=== PATIENT | female | born 1985 | race Caucasian/White ===

== ENCOUNTER 2018-03-15 14:10 | Inpatient (IN) | payer OTHER ==
[2018-03-15] MEDS: BETAMET ACET/BETAMET NA PH 30 MG/5 ML VIAL IM ONE ×2 (14:45)
[2018-03-15] MEDS ORDERED: BETAMET ACET/BETAMET NA PH 30 MG/5 ML VIAL ONE (14:46)
[2018-03-15] MEDS ORDERED: DEXTROSE 5%-LACTATED RINGERS 1,000 ML IV ONE ×2 (14:50→19:45)
[2018-03-15] MEDS: NIFEdipine 10 MG CAPSULE (FP) PO PRN ×3 (16:00→17:00)
[2018-03-15] MEDS ORDERED: NIFEdipine 10 MG CAPSULE (FP) ONE ×3 (16:03→17:02)
[2018-03-15] MEDS ORDERED: AMPICILLIN SODIUM 2 GM VIAL ONE (16:24)
[2018-03-15] MEDS ORDERED: AMPICILLIN - 2 GM in SODIUM CHLORIDE 100 ML IVPB ONE (16:30)
[2018-03-15 17:18] VITALS: BMI 26.9
[2018-03-15] MEDS: ACETAMINOPHEN 325 MG TABLET (FP) PO PRN (17:30)
[2018-03-15] MEDS ORDERED: ACETAMINOPHEN 325 MG TABLET (FP) ONE (17:32)
[2018-03-15] MEDS: AMPICILLIN - 1 GM in SODIUM CHLORIDE 100 ML IVPB SCH ×2 (18:17→21:30)
--- NOTE | 2018-03-15 18:48 | HP ---
Past Medical History - Primary Care Physician PCP:: Enzo Hilario - Admission Chief Complaint: 32yo P1 with at EGA 33w 4d admitted with labor. History of Present Illness: Pt with contractions since 03/11/2018. The pt was also being evaluated for elevated BP and possible preeclampsia, so she came to L&D with a 24hr urine collection in the morning. The pt was assessed for BP and possible labor and, since she was not having regular contractions, discharge to be seen in the office. The pt was seen in the office and she reported that her contractions were more frequent and painful. On her vaginal examination the cervix was noted to be 70% effaced but closed. The transvaginal US showed the cervical length 1.75cm. The pt was then referred back to L&D for evaluation of possible labor. On the L&D unit the pt was noted to have regular painful contractions and the decision was made to proceed with tocolysis. She was also given betamethasone 12 mg IM x 1, Ampicillin IV for GBS prophylaxis, and Nifedipine x 3 doses. Her contractions did not stop but improved. However, the pt developed a sudden onset midsternal chest pain. She denies SOB or dizziness. Her BP is stable within normal range and HR at 110 bpm. History Source: Patient, Medical Record Limitations to Obtaining History: No Limitations - Past Medical History Cardiovascular: Yes: Other (Mitral valve prolapse) Pulmonary: No: Asthma, Bronchitis, Cancer, COPD, O2 Dependent, Pneumonia, Previously Intubated, Pulmonary Embolus, Pulmonary Fibrosis, Sleep Apnea, Other Gastrointestinal: No: Ascites, Cancer, Constipation, Crohn's Disease, Diverticulitis, Diverticulosis, Esophageal Varices, Gastritis, GERD, GI Bleed, Hemorrhoids, Hiatal Hernia, Inflamatory Bowel Disease, Irritable Bowel Disease, Pancreatitis, Peptic Ulcer Disease, Ulcerative Colitis, Other Hepatobiliary: No: Cirrhosis, Cholelithiasis, Cholecystitis, Choledocholithiasis , Hepatitis A, Hepatitis B, Hepatitis C, Other Renal/: No: Renal Failure, Renal Inusuff, BPH, Cancer, Hematuria, Hemodialysis , Neurogenic Bladder, Renal Calculi, UTI, Other ...: 3 ...Para: 1 ( x 1, 6lb 2oz, severe preeclampsia) ...Term: 0 ...: 0 ...Spon : 0 ...Induced : 1 ...Multiple Gestation: 0 ...LMP: 07/27/17 ... Weeks Gestation by Dates: 32.5 ...EDC by Dates: 05/03/18 ...EDC by Sono: 04/29/18 Heme/Onc: No: Anemia, B12 Deficiency, Bleeding Disorder, Cancer, Current Chemotherapy, Current Radiation Therapy, Hemochromatosis, Hypercoaguable State, Myeloproliferative Synd, Sickle Cell Disease, Sickle Cell Trait, Thrombocytopenia, Other Infectious Disease: No: AIDS, C-Diff, Herpes Zoster, HIV, MRSA, STD's, Tuberculosis, VREF, Other Psych: No: Addictions, Anxiety, Bipolar, Depression, Panic, Psychosis, Schizophrenia, Other Musculoskeletal: No: Bursitis, Chronic low back pain, Hemiparesis, Hemiplegia, Osteoarthritis, Paraplegia, Other Rheumatology: No: Fibromyalgia, Gout, Lupus, Rheumatoid Arthritis, Sarcoidosis, Vasculitis, Other ENT: Yes: Other (right eye large-angle exotropia) Endocrine: No: Huntingdon's Disease, Justin's Disease, Diabetes Insipidus, Diabetes Mellitus, Hyperparathyroidism, Hyperthyroidism, Hypothyroidism, Osteopenia, SIADH, Other Dermatology: No: Basal Cell, Cellulitis, Eczema, Melanoma, Psoriasis, Squamous Cell, Other - Past Surgical History Hx Myomectomy: No Hx Transabdominal Cerclage: No Additional Surgical History: LEEP - Smoking History Smoking history: Never smoked Have you smoked in the past 12 months: No - Alcohol/Substance Use Hx Alcohol Use: No History of Substance Use: reports: None - Social History Usual Living Arrangement: Yes: With Spouse, With Child ADL: Independent History of Recent Travel: No Home Medications - Allergies Allergies/Adverse Reactions: Allergies Allergy/AdvReac Type Severity Reaction Status Date / Time avocado Allergy Severe Swelling Verified 03/15/18 17:18 chicken derived Allergy Severe Hives Verified 03/15/18 17:18 cat dander Allergy Intermediate Hives Verified 03/15/18 17:18 Nuts Allergy Intermediate Hives Uncoded 03/15/18 17:18 - Home Medications Home Medications: Ambulatory Orders Vit No.130/Iron/Folic [ Vitamins] 1 each PO DAILY 12/19/17 Family Disease History - Family Disease History Family Disease History: Heart Disease: Sister (Mitral valve prolapse), Other: Father (htn, high cholesterol) Review of Systems - Review of Systems Constitutional: reports: Other (contractions) Eyes: reports: No Symptoms HENT: reports: No Symptoms Neck: reports: No Symptoms Cardiovascular: reports: Chest Pain (see HPI) Respiratory: reports: No Symptoms Gastrointestinal: reports: No Symptoms Genitourinary: reports: No Symptoms Breasts: reports: No Symptoms Reported Musculoskeletal: reports: No Symptoms Integumentary: reports: No Symptoms Neurological: reports: No Symptoms Endocrine: reports: No Symptoms Hematology/Lymphatic: reports: No Symptoms Psychiatric: reports: No Symptoms Pain Intensity: 4 Physical Exam - Maternity Vital Signs: Vital Signs Temperature 98 F 03/15/18 16:15 Pulse Rate 113 H 03/15/18 17:25 Respiratory Rate 20 03/15/18 17:25 Blood Pressure 132/76 03/15/18 17:25 O2 Sat by Pulse Oximetry (%) Constitutional: Yes: Well Nourished Eyes: Yes: Other (right eye large-angle exotropia) HENT: Yes: Atraumatic, Normocephalic Neck: Yes: WNL, Supple, Trachea Midline Cardiovascular: Yes: WNL, Regular Rate and Rhythm, Tachycardia Lungs: Clear to auscultation, Normal air movement - Abdominal Exam/OB Fundal Height: 34 Number of Fetuses: Single Presentation: Vertex Contractions: Yes Regularity: Irregular Intensity: Mild/Mod Monitor Mode: External Heart Rate (range): 170 Heart Rate Location: Midline Category: II Accelerations: Non-Uniform Decelerations: None - Vaginal Exam/OB Vaginal Bleediing: No Speculum Exam: No Dilatation (cm): 0 Effacement (%): 70 Amniotic Membrane Status: Intact Presentation: Vertex/Position Station: -4 - Physical Exam Musculoskeletal: Yes: WNL Extremities: Yes: WNL Edema: No Integumentary: Yes: WNL Deep Tendon Reflex Grade: Normal +2 ...Motor Strength: WNL Psychiatric: Yes: WNL, Alert, Oriented Hemorrhage Risk Assessment - Risk Factors Medium Risk Factors: Yes: None High Risk Factors: Yes: None Risk Score: 1 Risk Level: Medium Risk Assessment/Plan 32yo P1 with at EGA 33w 4d admitted with labor. Pt was initially tocolysed with Nifedipine but developed acute episode of angina. The tocolysis was stopped. 1. Pt with stable and normal BP and saturating at 100% on RA. However, she was given O2 by mask when angina started. She had a normal HR but developed tachycardia when chest pain started. Pt's BP is remaining stable. The pt is tachycardic at 110-115 bpm. 2. Chest pain is improving. Pulse Ox at 100% 3. Fetus developed tachycardia to baseline 170 bpm. No decels, moderate variability, no accels. 4. labor- stopped tocolysis. The contractions have improved. The cervical exam w/o change from prior. Cannot use Mg sulfate due to recent Nifedipine use. Cannot use Indomethacin at this EGA due to concern for PDA closure. Cannot use Terbutaline due to maternal tachycardia and recent chest pain. Plan 1. monitor labor s/sx's 2. Continue O2 by mask 3. IV fluids with restriction 4. Chest pain- improved, ECG- sinus tach, possible LA enlargement. Cardiac enzymes are pending 5. CXR to be done 6. Start I/O strict 7. continuous monitoring.
[2018-03-15 18:49] LABS: BASO % 0.1 % (0-2.0); EOS % 0.1 % (0-4.5); HEMATOCRIT 35.1 % (32.4-45.2); HEMOGLOBIN 11.1 GM/dL (10.7-15.3); LYMPH % 11.6 % (8-40); MCHC 31.8 g/dl (32.0-36.0); MEAN CELL VOLUME 85.1 fl (80-96); MEAN PLT VOLUME 10.6 fl (7.5-11.1); NEUT % 86.2 % (42.8-82.8); PLATELET COUNT 173 K/MM3 (134-434); RBC 4.12 M/mm3 (3.60-5.2); RDW 13.4 % (11.6-15.6); WHITE BLOOD COUNT 9.8 K/mm3 (4.0-10.0)
[2018-03-15 18:50] LABS: INR 0.98 (0.82-1.09); PROTHROMBIN TIME (PATIENT) 11.1 SEC (9.7-13.0)
[2018-03-15 18:54] LABS: ACTIVATED PTT 24.9 SECONDS (26.9-34.4)
[2018-03-15] MEDS: DEXTROSE 5%-LACTATED RINGERS 1,000 ML IV SCH (19:15)
--- NOTE | 2018-03-15 20:23 | PN ---
Progress Note (SOAP) - Subjective Chief Complaint: Pt is still contacting. Chest pain resolved. No SOB - Current Medications Current Medications: Active Medications Acetaminophen (Tylenol -) 650 mg PO Q6H PRN PRN Reason: FEVER Last Admin: 03/15/18 17:30 Dose: 650 mg Ampicillin Sodium 1 gm/ Sodium (Chloride) 100 mls @ 200 mls/hr IVPB Q4H [facility] Stop: 03/16/18 05:29 Last Admin: 03/15/18 18:17 Dose: Not Given Dextrose/Lactated Ringer's (D5-Lr -) 1,000 mls @ 75 mls/hr IV ASDIR [facility] Last Admin: 03/15/18 19:15 Dose: 75 mls/hr Nifedipine (Procardia Capsule -) 10 mg PO Q20M PRN PRN Reason: Contractions Last Admin: 03/15/18 17:00 Dose: 10 mg - Objective Vital Signs: Vital Signs Temperature 98 F 03/15/18 16:15 Pulse Rate 120 H 03/15/18 20:00 Respiratory Rate 20 03/15/18 20:00 Blood Pressure 116/61 03/15/18 20:00 O2 Sat by Pulse Oximetry (%) Constitutional: Yes: Well Nourished, Calm Eyes: Yes: WNL, Conjunctiva Clear HENT: Yes: WNL, Atraumatic, Normocephalic Neck: Yes: WNL, Supple, Trachea Midline Cardiovascular: Yes: WNL, Regular Rate and Rhythm Respiratory: Yes: WNL, Regular, CTA Bilaterally, SOB on Exertion Gastrointestinal: Yes: Normal Bowel Sounds, Soft, Other (Gravid) ...Rectal Exam: Yes: Deferred Genitourinary: Yes: WNL Musculoskeletal: Yes: WNL Extremities: Yes: WNL Peripheral Pulses WNL: Yes Edema: Yes Edema: LLE: Trace, RLE: Trace Integumentary: Yes: WNL Neurological: Yes: WNL, Alert, Oriented ...Motor Strength: Yes: WNL Psychiatric: Yes: WNL, Alert, Oriented Labs Lab Results: CBC, BMP 03/15/18 17:55 Imaging - Results X-ray: Pending Assessment/Plan 32yo P1 with at EGA 33w 4d admitted with labor. BP normal, HR >100 Chest pain resolved. No SOB. Fetus with Category I tracing now. The tachycardia resolved. No decels, moderate variability labor- contractions improved
[2018-03-15] MEDS ORDERED: AMPICILLIN SODIUM 1 GM VIAL ONE (21:19)
[2018-03-15 22:49] LABS: ALBUMIN 2.7 g/dl (3.5-5.0); ALK PHOS 180 U/L (32-92); ANION GAP 7 (8-16); BLOOD UREA NITROGEN 5 mg/dl (7-18); CALCIUM 9.1 mg/dl (8.4-10.2); CHLORIDE 106 mmol/L (98-107); CO2 23 mmol/L (22-28); GLUCOSE,RANDOM 133 mg/dl (74-106); POTASSIUM 3.8 mmol/L (3.5-5.1); SGOT/AST 30 U/L (10-42); SGPT/ALT 14 U/L (10-40); SODIUM 136 mmol/L (136-145); TOT PROT 5.9 g/dl (6.4-8.3)
[2018-03-15 22:51] LABS: BILIRUBIN,TOTAL < 0.5 mg/dl (0.2-1.0); CREATININE < 0.8 mg/dl (0.6-1.3)
[2018-03-16] MEDS ORDERED: AMPICILLIN SODIUM 1 GM VIAL ONE ×6 (00:40→22:04)
[2018-03-16] MEDS: AMPICILLIN - 1 GM in SODIUM CHLORIDE 100 ML IVPB SCH ×6 (00:50→22:10)
[2018-03-16] MEDS ORDERED: MAGNESIUM 4GM/H20 - 4 GM/100 ML IVPB IVPB ONE (07:55)
[2018-03-16] MEDS ORDERED: MAGNESIUM 4GM/H20 - 4 GM/100 ML IVPB IVPB SCH (08:05)
[2018-03-16] MEDS ORDERED: MAGNESIUM SULFATE 20GM/500ML - 20 GM/500 ML INFUS.BAG ONE ×2 (08:38→20:28)
--- NOTE | 2018-03-16 09:35 | PN ---
Progress Note (SOAP) - Subjective History of Present Illness: Patient reports contractions began this AM Mild cramping + FM No LOF or VB - Current Medications Current Medications: Active Medications Acetaminophen (Tylenol -) 650 mg PO Q6H PRN PRN Reason: FEVER Last Admin: 03/15/18 17:30 Dose: 650 mg Dextrose/Lactated Ringer's (D5-Lr -) 1,000 mls @ 75 mls/hr IV ASDIR [facility] Last Admin: 03/15/18 19:15 Dose: 75 mls/hr Ampicillin Sodium 1 gm/ Sodium (Chloride) 100 mls @ 200 mls/hr IVPB Q4H [facility] Last Admin: 03/16/18 08:35 Dose: 200 mls/hr Nifedipine (Procardia Capsule -) 10 mg PO Q20M PRN PRN Reason: Contractions Last Admin: 03/15/18 17:00 Dose: 10 mg - Objective Vital Signs: Vital Signs Temperature 98.2 F 03/16/18 09:00 Pulse Rate 88 03/16/18 09:00 Respiratory Rate 18 03/16/18 09:00 Blood Pressure 119/75 03/16/18 09:00 O2 Sat by Pulse Oximetry (%) Constitutional: Yes: Well Nourished, No Distress, Calm Cardiovascular: Yes: Regular Rate and Rhythm Respiratory: Yes: CTA Bilaterally Gastrointestinal: Yes: Normal Bowel Sounds, Soft Genitourinary: Yes: Other (cervix closed / 80% / daniella) ....Post : Yes: Uterus non-tender Edema: No Labs Lab Results: CBC, BMP 03/15/18 17:55 03/15/18 17:55 Assessment/Plan 32 yo 33 wks admitted PTL, s/p BMZ x 1 with recurrence of contractions 1. Will start magnesium for tocolysis 2. s/p BMZ, will continue course 3. If progression in labor, plan to start ampicillin for GBS prophylaxis 4. Will continue to monitor
[2018-03-16] MEDS ORDERED: MAGNESIUM SULFATE 20GM/500ML - 20 GM/500 ML INFUS.BAG IV SCH ×2 (10:00→14:30)
[2018-03-16] MEDS ORDERED: BETAMET ACET/BETAMET NA PH 30 MG/5 ML VIAL IM ONE (14:45)
[2018-03-16] MEDS ORDERED: ACETAMINOPHEN 325 MG TABLET (FP) ONE (22:27)
[2018-03-16] MEDS ORDERED: ACETAMINOPHEN 325 MG TABLET (FP) PO PRN (22:28)
--- NOTE | 2018-03-16 22:29 | PN ---
Progress Note (short form) - Note Progress Note: cx closed, fhr cat 1, irregular contraction
[2018-03-16] MEDS: ACETAMINOPHEN 325 MG TABLET (FP) PO PRN (22:30)
[2018-03-17] MEDS: DEXTROSE 5%-LACTATED RINGERS 1,000 ML IV SCH (00:15)
[2018-03-17] MEDS ORDERED: AMPICILLIN SODIUM 1 GM VIAL ONE ×2 (03:44→11:02)
[2018-03-17] MEDS: AMPICILLIN - 1 GM in SODIUM CHLORIDE 100 ML IVPB SCH ×2 (03:50→10:00)
[2018-03-17 06:08] LABS: HBsAG SCREEN Negative (Negative)
--- NOTE | 2018-03-17 08:48 | PN ---
Progress Note (short form) - Note Progress Note: 33 weeks, labor ,on MGso4, has no more contraction., no vaginal bleeding or discharge fhr cat 1, no contraction CBC, BMP 03/15/18 17:55 03/15/18 17:55 Last Vital Signs Temp Pulse Resp BP Pulse Ox 98.6 F 98 H 20 116/56 03/17/18 08:00 03/17/18 08:00 03/17/18 08:00 03/17/18 08:00 abdomen soft, uterus non tender plan d/c mg , observation, if no contraction to PP floor for observation
[2018-03-17 13:56] VITALS: BP 127/78; PULSE 91; TEMP 98.8
--- NOTE | 2018-03-17 14:49 | PN ---
Ante-Partal Exam - Subjective Subjective: No complaints. Pt reports occasional mild irregular ctx's, good FM, no LOF Vital Signs: Vital Signs Temperature 98.8 F 03/17/18 13:56 Pulse Rate 91 H 03/17/18 13:56 Respiratory Rate 20 03/17/18 13:56 Blood Pressure 127/78 03/17/18 13:56 O2 Sat by Pulse Oximetry (%) Bleeding: No Headache: No Visual changes: No Right upper quadrant pain: No Pain (scale 1-10): 0 - Contractions Contractions: Yes Regularity: Irritability - Exam during Labor Exam: Vaginal Dilatation (cm): 0 Effacement (%): 70 Amniotic Membrane Status: Intact Presentation: Vertex Station: -4 - Intrapartum Hemorrhage Risk Medium Risk Factors: None High Risk Factors: None Risk Score: 0 Risk Level: Low Risk - Assessment/Plan Assessment/Plan: 32yo P1 with at EGA 33w5d admitted with PTL, s/p tocolysis and steroids. The pt is doing well, stable. Plan to d/c home. PTL precautions discussed.
--- NOTE | 2018-03-17 15:02 | DS ---
Physical Exam-BINMAN Vital Signs: Vital Signs Temperature 98.8 F 03/17/18 13:56 Pulse Rate 91 H 03/17/18 13:56 Respiratory Rate 20 03/17/18 13:56 Blood Pressure 127/78 03/17/18 13:56 O2 Sat by Pulse Oximetry (%) Constitutional: Yes: Well Nourished, No Distress, Calm Eyes: Yes: WNL, Conjunctiva Clear HENT: Yes: WNL, Atraumatic, Normocephalic Neck: Yes: WNL, Supple, Trachea Midline Cardiovascular: Yes: WNL, Regular Rate and Rhythm Respiratory: Yes: WNL, Regular, CTA Bilaterally Gastrointestinal: Yes: WNL, Normal Bowel Sounds, Soft ...Rectal Exam: Yes: Deferred Renal/: Yes: WNL External Genitalia: Yes: Normal Internal Exam Deferred: No Vaginal Exam: Yes: Normal Cervix: Yes: Normal (os closed/70%/-4) Uterus: Yes: Normal (Gravid) Musculoskeletal: Yes: WNL Extremities: Yes: WNL Edema: No Integumentary: Yes: WNL Neurological: Yes: WNL, Alert, Oriented ...Motor Strength: WNL Psychiatric: Yes: WNL, Alert, Oriented Labs: CBC, BMP 03/15/18 17:55 03/15/18 17:55 Delivery, Single - Feeding Plan Initial Plan: Exclusive throughout hospitalization Discharge Summary Reason For Visit: LABOR Procedures: Principal: Tocolysis Hospital Course: successful tocolysis Condition: Good - Instructions Diet, Activity, Other Instructions: Regular diet Referrals: Enzo Hilario MD [Staff Physician] - Disposition: HOME - Home Medications Comprehensive Discharge Medication List: Ambulatory Orders Vit No.130/Iron/Folic [ Vitamins] 1 each PO DAILY 12/19/17
--- NOTE | 2018-03-18 08:53 | EKG ---
Test Reason : Blood Pressure : / mmHG Vent. Rate : 110 BPM Atrial Rate : 110 BPM P-R Int : 126 ms QRS Dur : 076 ms QT Int : 302 ms P-R-T Axes : 053 035 054 degrees QTc Int : 408 ms SINUS TACHYCARDIA POSSIBLE LEFT ATRIAL ENLARGEMENT BORDERLINE ECG WHEN COMPARED WITH ECG OF 13-MAY-2011 10:29, VENT. RATE HAS INCREASED BY 41 BPM T WAVE INVERSION NOW EVIDENT IN ANTERIOR LEADS Confirmed by GROVER MURRAY, AMI ([id number]) on 03/18/2018 8:53:09 AM Referred By: Confirmed By:AMI NESS MD
== END 2018-03-17 15:20 | disposition home or self-care (01) | DRG 778 ==
LOC: JDEL 14:10 → JLDR 16:15 → J3W 03-17 13:15
PROVIDERS: ADMIT Obstetrics & Gynecology; ATTEND Obstetrics & Gynecology
DX: O60.03 Preterm labor without delivery, third trimester (principal); O26.893 Other specified pregnancy related conditions, third trimester; R07.89 Other chest pain; Z3A.33 33 weeks gestation of pregnancy
CPT/HCPCS: 36415; 59025; 71045-TC-FY; 80053; 82550; 82553; 82575; 83735; 84156; 84484; 85025; 85610; 85730; 86593; 86850; 86900; 86901; 87340; 93005; 93010; 96372

== ENCOUNTER 2018-04-13 10:25 | Inpatient (IN) | payer OTHER ==
[2018-04-13 11:22] LABS: BASO % 0.2 % (0-2.0); EOS % 0.5 % (0-4.5); HEMATOCRIT 32.3 % (32.4-45.2); HEMOGLOBIN 10.5 GM/dL (10.7-15.3); LYMPH % 17.6 % (8-40); MCHC 32.5 g/dl (32.0-36.0); MEAN CELL VOLUME 83.1 fl (80-96); MEAN PLT VOLUME 10.1 fl (7.5-11.1); MONO % 4.4 % (3.8-10.2); NEUT % 77.3 % (42.8-82.8); PLATELET COUNT 179 K/MM3 (134-434); RBC 3.89 M/mm3 (3.60-5.2); RDW 14.4 % (11.6-15.6); RETICULOCYTES 1.87 % (0.5-1.5); WHITE BLOOD COUNT 7.1 K/mm3 (4.0-10.0)
[2018-04-13 11:33] LABS: INR 0.96 (0.82-1.09); PROTHROMBIN TIME (PATIENT) 10.8 SEC (9.7-13.0)
[2018-04-13 11:35] VITALS: BMI 28.5
[2018-04-13 11:35] LABS: ACTIVATED PTT 26.4 SECONDS (25.2-36.5)
[2018-04-13 11:44] LABS: ANION GAP 9 (8-16); BLOOD UREA NITROGEN 8 mg/dL (7-18); CALCIUM 8.6 mg/dL (8.5-10.1); CHLORIDE 106 mmol/L (98-107); CO2 23 mmol/L (21-32); CREATININE 0.7 mg/dL (0.55-1.02); GAMMA GLUTAMYL TRANSPEPTIDASE 21 U/L (5-85); GLUCOSE,RANDOM 127 mg/dL (74-106); POTASSIUM 3.6 mmol/L (3.5-5.1); SGOT/AST 22 U/L (15-37); SGPT/ALT 17 U/L (12-78); SODIUM 138 mmol/L (136-145); URIC ACID 4.6 mg/dL (2.6-7.2)
[2018-04-13 11:48] LABS: URINE APPEARANCE SLCLOUDY; URINE BILIRUBIN NEGATIVE (<2.0 mg/dL); URINE COLOR LTYELLOW; URINE GLUCOSE (UA) NEGATIVE (NEGATIVE); URINE KETONE TRACE (NEGATIVE); URINE NITRITE NEGATIVE (NEGATIVE); URINE UROBILINOGEN NEGATIVE mg/dL (0.2-1.0)
[2018-04-13 11:50] LABS: URINE LEUK ESTERASE 2+ (NEGATIVE); URINE PROTEIN 2+ (NEGATIVE)
[2018-04-13 11:52] LABS: EPI CELLS MODERATE /HPF (FEW); URINE BACTERIA RARE /hpf (NONE SEEN)
[2018-04-13 12:00] LABS: URINE 24 HOUR CREATININE 1230.5 MG/24HR (600-1800)
--- NOTE | 2018-04-13 15:59 | PN ---
Progress Note (short form) - Note Progress Note: cx 1 cm ,non effaced, vx -3 mi, fhr cat 1, no contraction, cervidil risks discussed , agreed , cervidil inserted
--- NOTE | 2018-04-13 16:21 | HP ---
Past Medical History - Primary Care Physician PCP:: Tobias Merrill - Admission Chief Complaint: 37 weeks, pih, for cervidil induction History of Present Illness: 32 yo f g 3 [id number] by sono 04/29/18 with hx of pih, proteinuria, 24 hr urine protein 667 mg, no headache, no blurred vision , ,admitted for cervidil induction, rba discussed - Past Medical History Cardiovascular: Yes: Other (Mitral valve prolapse) ...: 3 ...Para: 1 ...Term: 1 ...: 0 ...Spon : 0 ...Induced : 1 ...Multiple Gestation: 0 ...LMP: 07/27/17 ... Weeks Gestation by Dates: 37.1 ...EDC by Dates: 05/03/18 ...EDC by Sono: 04/29/18 ENT: Yes: Other (right eye large-angle exotropia) - Past Surgical History Hx Myomectomy: No Hx Transabdominal Cerclage: No - Smoking History Smoking history: Never smoked Have you smoked in the past 12 months: No - Alcohol/Substance Use Hx Alcohol Use: No History of Substance Use: reports: None - Social History ADL: Independent History of Recent Travel: No Home Medications - Allergies Allergies/Adverse Reactions: Allergies Allergy/AdvReac Type Severity Reaction Status Date / Time avocado Allergy Severe Swelling Verified 04/13/18 10:39 chicken derived Allergy Severe Hives Verified 04/13/18 10:39 cat dander Allergy Intermediate Hives Verified 04/13/18 10:39 nifedipine [From Procardia] AdvReac Elevated Verified 04/13/18 18:59 Blood Pressure Nuts Allergy Intermediate Hives Uncoded 04/13/18 10:39 - Home Medications Home Medications: Ambulatory Orders Vit No.130/Iron/Folic [ Vitamins] 1 each PO DAILY 12/19/17 Family Disease History - Family Disease History Family Disease History: Heart Disease: Sister (Mitral valve prolapse), Other: Father (htn, high cholesterol) Physical Exam - Maternity Vital Signs: Vital Signs Temperature 98.6 F 04/13/18 14:31 Pulse Rate 85 04/13/18 15:40 Respiratory Rate 20 04/13/18 15:40 Blood Pressure 133/92 04/13/18 15:40 O2 Sat by Pulse Oximetry (%) - Labs Lab Results: CBC, BMP 04/13/18 10:55 04/13/18 10:55
[2018-04-13] MEDS ORDERED: DINOPROSTONE 10 MG VAGINAL SUPPOSITORY VG ONE (16:30)
[2018-04-13] MEDS ORDERED: TUBERCULIN PPD 5 TU/0.1ML SYRINGE (IN PATIENT USE ONLY) ID ONE (20:00)
[2018-04-13] MEDS ORDERED: ACETAMINOPHEN 325 MG TABLET (FP) ONE (21:12)
[2018-04-13] MEDS: ACETAMINOPHEN 325 MG TABLET (FP) PO PRN (21:15)
[2018-04-13] MEDS ORDERED: BUTORPHANOL TARTRATE 1 MG/ML VIAL IVPUSH ONE (22:42)
[2018-04-13] MEDS ORDERED: PROMETHAZINE HCL 25 MG/1 ML VIAL IVPUSH ONE (22:42)
[2018-04-14] MEDS ORDERED: ELECTROLYTE-148 SOLN 1,000 ML IV SCH (04:00)
[2018-04-14] MEDS ORDERED: OXYTOCIN 30 UNITS in 0.9% NS 30 UNIT/500 ML INFUS.BAG IVPB SCH ×2 (04:30→06:45)
[2018-04-14] MEDS ORDERED: OXYTOCIN 30 UNITS in 0.9% NS 30 UNIT/500 ML INFUS.BAG IVPB ONE (05:07)
--- NOTE | 2018-04-14 07:12 | PN ---
Progress Note (short form) - Note Progress Note: ocervidil was removed at 330 am, presently on pitocin, no headache, no blured vision. Last Vital Signs Temp Pulse Resp BP Pulse Ox 98.2 F 73 20 133/85 04/14/18 06:00 04/14/18 06:00 04/14/18 06:00 04/14/18 06:00 cx 2 cm 70 vx -3 mi, fhr cat 1 tracing, regular contraction plan cont. pitocin pain management FHM
[2018-04-14] MEDS ORDERED: BUTORPHANOL TARTRATE 1 MG/ML VIAL ONE ×2 (09:25)
[2018-04-14] MEDS ORDERED: PROMETHAZINE HCL 25 MG/1 ML VIAL ONE (09:25)
[2018-04-14] MEDS ORDERED: BUTORPHANOL TARTRATE 1 MG/ML VIAL IVPB ONE (10:45)
[2018-04-14] MEDS ORDERED: PROMETHAZINE HCL 25 MG/1 ML VIAL IVPB ONE (10:45)
[2018-04-14] MEDS ORDERED: OXYTOCIN 20 UNITS in 0.9% NS 20 UNIT/1,000 ML INFUS.BAG IV ONE (11:10)
[2018-04-14] MEDS ORDERED: BENZOCAINE 20% 57 GM BOTTLE TP PRN (11:43)
[2018-04-14] MEDS ORDERED: BENZOCAINE 28 GM HEMORRHOIDAL OINTMENT TP PRN (11:43)
[2018-04-14] MEDS ORDERED: ACETAMINOPHEN 325 MG TABLET (FP) PO PRN (11:43)
[2018-04-14] MEDS ORDERED: BISACODYL 10 MG SUPP.RECT RC PRN (11:43)
[2018-04-14] MEDS ORDERED: METHYLERGONOVINE MALEATE 0.2 MG/1 ML AMP IM PRN (11:43)
[2018-04-14] MEDS ORDERED: WITCH HAZEL 50% (TUCKS) 40 PAD/JAR PAD TP PRN (11:43)
[2018-04-14] MEDS ORDERED: D5W-LR W/ 20 UNITS OXYTOCIN 20 UNIT/1,000 ML INFUS.BAG IV SCH (11:45)
--- NOTE | 2018-04-14 11:54 | PN ---
Delivery - Delivery Vaginal Delivery: No Problems Type of Anesthesia: General (Stadol/Phenergan) Episiotomy/Laceration: None EBL (cc): 300 Delivery, Single - Stages of Labor Date 1st Stage Initiatied: 04/14/18 Time 1st Stage Initiated: 08:00 Date 2nd Stage Initiated: 04/14/18 Time 2nd Stage Initiated: 11:15 Date of Delivery: 04/14/18 Time of Delivery: 11:26 Date Placenta Delivered: 04/14/18 Time Placenta Delivered: 11:28 Placenta: Yes: Spontaneous - Condition of Infant Electrical Intern/Gas Plant Repairer Present: No Gender: Female Weight: 6 lb 4 oz Position: OA - 1 Minute Total Score: 9 5 Minutes Total Score: 10 - Feeding Plan Initial Plan: Exclusive throughout hospitalization Benefits of Exclusively reinforced: Yes Remarks - Remarks Remarks: Uncomplicated delivery of head and shoulders
[2018-04-14] MEDS ORDERED: OXYTOCIN 20 UNITS in 0.9% NS 20 UNIT/1,000 ML INFUS.BAG IV SCH (12:15)
[2018-04-14] MEDS: FERROUS SO4 325 MG TABLET (FP) PO SCH (21:58)
[2018-04-15] MEDS: IBUPROFEN 600 MG TABLET (FP) PO PRN ×3 (01:38→19:38)
[2018-04-15 07:36] LABS: BASO % 0.4 % (0-2.0); EOS % 0.2 % (0-4.5); HEMATOCRIT 29.9 % (32.4-45.2); HEMOGLOBIN 9.7 GM/dL (10.7-15.3); LYMPH % 19.9 % (8-40); MCHC 32.3 g/dl (32.0-36.0); MEAN CELL VOLUME 83.5 fl (80-96); MONO % 5.2 % (3.8-10.2); NEUT % 74.3 % (42.8-82.8); PLATELET COUNT 149 K/MM3 (134-434); RBC 3.58 M/mm3 (3.60-5.2); RDW 14.3 % (11.6-15.6); WHITE BLOOD COUNT 10.4 K/mm3 (4.0-10.0)
[2018-04-15] MEDS: FERROUS SO4 325 MG TABLET (FP) PO SCH ×2 (09:54→21:06)
[2018-04-15] MEDS: PRENATAL VITAMINS W/ FOLIC ACID TABLET (FP) PO SCH (09:54)
[2018-04-15] MEDS: ACETAMINOPHEN 325 MG TABLET (FP) PO PRN ×2 (09:56→19:39)
[2018-04-15] MEDS ORDERED: DIPHTH,PERTUSS(ACELL),TET 0.5 ML DISP.SYRIN IM ONE (10:00)
--- NOTE | 2018-04-15 13:02 | PN ---
Post Progress Note - Subjective Subjective: No complains Post Day: 1 Type of Delivery: Vital Signs: Vital Signs Temperature 98.0 F 04/15/18 10:00 Pulse Rate 78 04/15/18 10:00 Respiratory Rate 20 04/15/18 10:00 Blood Pressure 132/81 04/15/18 10:00 O2 Sat by Pulse Oximetry (%) 100 04/14/18 12:30 Breast Exam: Yes: Soft Uterus: Yes: Fundus Firm Abdomen/GI: Yes: Abdomen soft, Tolerating PO Lochia: Yes: Rubra Lochia, amount: Moderate Perineum: Yes: Intact Activity: Ambulating - Labs Labs: CBC WBC 10.4 K/mm3 (4.0-10.0) H 04/15/18 06:30 RBC 3.58 M/mm3 (3.60-5.2) L 04/15/18 06:30 Hgb 9.7 GM/dL (10.7-15.3) L 04/15/18 06:30 Hct 29.9 % (32.4-45.2) L 04/15/18 06:30 MCV 83.5 fl (80-96) 04/15/18 06:30 MCH 27.0 pg (25.7-33.7) 04/15/18 06:30 MCHC 32.3 g/dl (32.0-36.0) 04/15/18 06:30 RDW 14.3 % (11.6-15.6) 04/15/18 06:30 Plt Count 149 K/MM3 (134-434) 04/15/18 06:30 MPV 10.0 fl (7.5-11.1) 04/15/18 06:30 Absolute Neuts (auto) 7.7 # 04/15/18 06:30 Neutrophils % 74.3 % (42.8-82.8) 04/15/18 06:30 Lymphocytes % 19.9 % (8-40) 04/15/18 06:30 Monocytes % 5.2 % (3.8-10.2) 04/15/18 06:30 Eosinophils % 0.2 % (0-4.5) 04/15/18 06:30 Basophils % 0.4 % (0-2.0) 04/15/18 06:30 Nucleated RBC % 0 % (0-0) 04/15/18 06:30 Retic Count 1.87 % (0.5-1.5) H 04/13/18 10:55 Haptoglobin 183 mg/dL (34-200) 04/13/18 10:55 Assessment/Plan 32yo P2 s/p doing well VSS, Afebrile Rh positive plan to d/c in am
--- NOTE | 2018-04-15 19:38 | DS ---
Physical Exam-SALES AGENT Vital Signs: Vital Signs Temperature 98.0 F 04/15/18 10:00 Pulse Rate 78 04/15/18 10:00 Respiratory Rate 20 04/15/18 10:00 Blood Pressure 132/81 04/15/18 10:00 O2 Sat by Pulse Oximetry (%) 100 04/14/18 12:30 Constitutional: Yes: Well Nourished Eyes: Yes: WNL HENT: Yes: WNL Neck: Yes: WNL, Supple, Trachea Midline Cardiovascular: Yes: WNL, Regular Rate and Rhythm Respiratory: Yes: WNL, Regular, CTA Bilaterally Gastrointestinal: Yes: WNL, Normal Bowel Sounds, Soft ...Rectal Exam: Yes: WNL Renal/: Yes: WNL Pelvis: Yes: WNL External Genitalia: Yes: Normal Internal Exam Deferred: Yes ....Post : Yes: Uterus firm, Uterus non-tender Breast(s): Yes: WNL Musculoskeletal: Yes: WNL Extremities: Yes: WNL Edema: No Integumentary: Yes: WNL Neurological: Yes: WNL, Alert, Oriented ...Motor Strength: WNL Psychiatric: Yes: WNL, Alert, Oriented Labs: CBC, BMP 04/15/18 06:30 04/13/18 10:55 Delivery - Delivery Vaginal Delivery: No Problems Type of Anesthesia: None Episiotomy/Laceration: None EBL (cc): 300 Delivery, Single - Stages of Labor Date 1st Stage Initiatied: 04/14/18 Time 1st Stage Initiated: 08:00 Date 2nd Stage Initiated: 04/14/18 Time 2nd Stage Initiated: 11:15 Date of Delivery: 04/14/18 Time of Delivery: 11:26 Time Placenta Delivered: 11:28 Placenta: Yes: Spontaneous - Condition of Supervisor Beam Department/Reproduction Specialist Present: No Infant Gender: Female Weight: 6 lb 4 oz Position: OA Total Hours ROM (Hrs/Mins): 0hrs/43mins - 1 Minute Total Score: 9 5 Minutes Total Score: 10 - [place] Feeding Plan Initial Plan: Exclusive throughout hospitalization Discharge Summary Reason For Visit: CERVIDIL INDUCTION Procedures: Principal: Normal spontaneous vaginal delivery Hospital Course: Unremarkable Condition: Good - Instructions Diet, Activity, Other Instructions: Physical activity Resume your normal everyday activity as tolerated no heavy lifting or exercise until seen by your surgeon. You may walk unlimited corinne of and climb stairs. You may resume driving the car when you feel safe and comfortable behind the wheel. No sexual activity as instructed. Wound care If you have a bandage, leave it on, and keep dry for 48-72 hours. After that time discard the outer bandage. If they are tapes on the skin under the out of bandage leave them in place. They will peel off in the next 7 to 10 days. Do Not Peel them off. You may shower the day after surgery. If there are tapes present on the skin, you may shower over them. Diet There are no dietary restrictions. Eat healthy, high-fiber foods. Drink 6 to 8 glasses of liquid each day. This will assist in keeping your bowels are regular. Pain management You may take Tylenol or acetaminophen or Ibuprofen (for example, Motrin, Advil etc.) from my pain prescription medication is ordered should be taken as prescribed for moderate to severe pain. Call MD for any of the following: Severe pain not relieved by medication Fever of 101 or higher Excessive bleeding or drainage on dressing Inability to urinate Referrals: Laurence Calderon MD [Staff Physician] - Disposition: HOME - Home Medications Comprehensive Discharge Medication List: Ambulatory Orders Vit No.130/Iron/Folic [ Vitamins] 1 each PO DAILY 12/19/17
[2018-04-15] MEDS ORDERED: SENNOSIDES/DOCUSATE COMBO (SENNA PLUS) TABLET (UD) PO PRN (22:00)
[2018-04-16] MEDS: ACETAMINOPHEN 325 MG TABLET (FP) PO PRN (10:00)
[2018-04-16] MEDS: IBUPROFEN 600 MG TABLET (FP) PO PRN (10:02)
[2018-04-16] MEDS: FERROUS SO4 325 MG TABLET (FP) PO SCH (10:03)
[2018-04-16] MEDS: PRENATAL VITAMINS W/ FOLIC ACID TABLET (FP) PO SCH (10:03)
[2018-04-16 11:51] VITALS: BP 137/61; PULSE 90; TEMP 98.6
== END 2018-04-16 11:15 | disposition home or self-care (01) | DRG 775 ==
LOC: JLDR 10:25 → J3W 04-14 12:55
PROVIDERS: ADMIT Obstetrics & Gynecology; ATTEND Obstetrics & Gynecology
PROC: 10E0XZZ Delivery of Products of Conception, External Approach (ICD-10-PCS; principal; 2018-04-14)
DX: O80 Encounter for full-term uncomplicated delivery (principal); Z3A.37 37 weeks gestation of pregnancy; Z37.0 Single live birth
CPT/HCPCS: 36415; 59409; 80048; 81003; 81015; 82575; 82977; 83010; 84156; 84450; 84460; 84550; 85025; 85044; 85610; 85730; 86593; 86850; 86900; 86901; 87389; 90715; 94010

== ENCOUNTER 2022-03-29 04:19 | Day surgery (SDC) | payer OTHER ==
[2022-03-26 15:04] VITALS: BMI 24.5
[2022-03-29 10:25] LABS: BASO % 0.4 % (0-2.0); LYMPH % 36.7 % (8-40); MCH 28.1 pg (25.7-33.7); MCHC 32.4 g/dl (32.0-36.0); MEAN CELL VOLUME 86.6 fl (80-96); MEAN PLT VOLUME 8.8 fl (7.5-11.1); MONO % 4.5 % (3.8-10.2); NEUT % 57.4 % (42.8-82.8); PLATELET COUNT 198 10^3/uL (134-434); RBC 4.27 M/mm3 (3.60-5.2); WHITE BLOOD COUNT 6.9 K/mm3 (4.0-10.0)
[2022-03-29] MEDS ORDERED: SCOPOLAMINE HYDROBROMIDE 1 PATCH PATCH.TD72 ONE (12:23)
[2022-03-29] MEDS ORDERED: MIDAZOLAM HCL 2 MG/2 ML SINGLE DOSE VIAL ONE ×3 (12:26→12:42)
[2022-03-29] MEDS ORDERED: PROPOFOL 20 ML ONE (12:26)
[2022-03-29] MEDS ORDERED: FENTANYL CITRATE/PF 50 MCG/ML VIAL ONE ×3 (12:26→12:42)
[2022-03-29] MEDS ORDERED: ceFAZolin SODIUM 1 GM VIAL IVPB ONE (12:40)
[2022-03-29] MEDS ORDERED: oxyCODONE HCL 5 MG TABLET PO PRN (13:11)
[2022-03-29] MEDS ORDERED: ONDANSETRON 4 MG/2 ML VIAL IVPUSH PRN (13:11)
[2022-03-29] MEDS ORDERED: FENTANYL CITRATE/PF 50 MCG/ML VIAL IVPUSH PRN (13:11)
[2022-03-29] MEDS ORDERED: ACETAMINOPHEN 1000 MG/100 ML BAG IVPB ONE ×2 (13:12→13:31)
[2022-03-29] MEDS ORDERED: LACTATED RINGERS SOLUTION 1,000 ML IV SCH (13:15)
[2022-03-29 15:04] VITALS: BP 108/67; PULSE 78; TEMP 98
== END 2022-03-29 14:50 | disposition home or self-care (01) ==
LOC: JASU-SURG 04:19
PROVIDERS: ATTEND Obstetrics & Gynecology
PROC: 10D17ZZ Extraction of Products of Conception, Retained, Via Natural or Artificial Opening (ICD-10-PCS; principal; 2022-03-29 10:30)
DX: O03.4 Incomplete spontaneous abortion without complication (principal)
CPT/HCPCS: 36415; 76830-TC; 85025; 86850; 86900; 86901; 88305-TC; 94760

== ENCOUNTER 2022-06-14 12:23 | Emergency (ER) | payer OTHER ==
[2022-06-14 12:50] VITALS: BP 119/72; PULSE 93; RESP 17; TEMP 98.2; BMI 25.0
[2022-06-14] MEDS ORDERED: ACETAMINOPHEN 500 MG TABLET (FP) PO ONE (13:47)
[2022-06-14] MEDS ORDERED: ACETAMINOPHEN 325 MG TABLET (FP) ONE (13:51)
[2022-06-14 15:26] LABS: BASO % 0.4 % (0-2.0); EOS % 0.6 % (0-4.5); HEMATOCRIT 38.9 % (32.4-45.2); HEMOGLOBIN 12.9 GM/dL (10.7-15.3); LYMPH % 33.8 % (8-40); MCH 28.2 pg (25.7-33.7); MCHC 33.1 g/dl (32.0-36.0); MEAN CELL VOLUME 85.3 fl (80-96); MEAN PLT VOLUME 9.6 fl (7.5-11.1); MONO % 4.2 % (3.8-10.2); PLATELET COUNT 207 10^3/uL (134-434); RBC 4.56 M/mm3 (3.60-5.2); RDW 12.5 % (11.6-15.6); WHITE BLOOD COUNT 7.9 K/mm3 (4.0-10.0)
[2022-06-14 15:37] LABS: CALCIUM 9.5 mg/dL (8.5-10.1)
[2022-06-14 15:38] LABS: ALBUMIN 4.3 g/dl (3.4-5.0); BLOOD UREA NITROGEN 8.7 mg/dL (7-18)
[2022-06-14 15:41] LABS: CREATININE 0.8 mg/dL (0.55-1.3)
[2022-06-14 15:42] LABS: BILIRUBIN,TOTAL 0.6 mg/dL (0.2-1); TOT PROT 7.5 g/dl (6.4-8.2)
== END 2022-06-14 17:15 | disposition home or self-care (01) ==
LOC: JER 12:23
DX: O20.8 Other hemorrhage in early pregnancy (principal); Z3A.01 Less than 8 weeks gestation of pregnancy
CPT/HCPCS: 36415; 76817-TC; 80053; 84702; 85025; 86850; 86900; 86901; 99284-25

== ENCOUNTER 2022-12-15 16:10 | Inpatient (IN) | payer OTHER ==
[2022-12-15 18:03] LABS: EPI CELLS 25 /uL (0-25.1); HYALINE CASTS 1 /uL (0-3.1); PH,URINE 7.5 (5.0-8.0); URINE APPEARANCE CLEAR; URINE BACTERIA 3615 /uL (0-1359); URINE BILIRUBIN NEGATIVE (NEGATIVE); URINE COLOR YELLOW; URINE GLUCOSE (UA) NEGATIVE (NEGATIVE); URINE KETONE NEGATIVE (NEGATIVE); URINE LEUK ESTERASE 1+ (NEGATIVE); URINE NITRITE NEGATIVE (NEGATIVE); URINE PROTEIN 2+ (NEGATIVE); URINE RBC 10 /uL (0-23.9); URINE UROBILINOGEN 0.2 mg/dL (0.2-1.0); URINE WBC 149 /uL (0-25.8)
[2022-12-15 19:29] LABS: BASO % 0.1 % (0-2.0); EOS % 0.4 % (0-4.5); HEMATOCRIT 28.4 % (32.4-45.2); HEMOGLOBIN 9.4 GM/dL (10.7-15.3); LYMPH % 21.4 % (8-40); MCH 26.9 pg (25.7-33.7); MCHC 33.1 g/dl (32.0-36.0); MEAN CELL VOLUME 81.3 fl (80-96); MEAN PLT VOLUME 9.6 fl (7.5-11.1); MONO % 5.8 % (3.8-10.2); NEUT % 72.3 % (42.8-82.8); PLATELET COUNT 165 10^3/uL (134-434); RDW 14.3 % (11.6-15.6); RETICULOCYTES 2.73 % (0.5-1.5); WHITE BLOOD COUNT 8.4 K/mm3 (4.0-10.0)
[2022-12-15 19:35] LABS: INR 0.98 (0.83-1.09); PROTHROMBIN TIME (PATIENT) 11.4 SEC (9.7-13.0)
[2022-12-15 19:38] LABS: ACTIVATED PTT 25.4 SECONDS (25.2-36.5)
[2022-12-15 20:26] LABS: CALCIUM 8.8 mg/dL (8.5-10.1)
[2022-12-15 20:27] LABS: ALBUMIN 2.2 g/dl (3.4-5.0); BLOOD UREA NITROGEN 6.2 mg/dL (7-18)
[2022-12-15] MEDS ORDERED: hydrALAZINE HCL 20 MG/ML VIAL ONE (20:27)
[2022-12-15 20:29] LABS: URIC ACID 4.1 mg/dL (2.6-7.2)
[2022-12-15 20:30] LABS: CREATININE 0.6 mg/dL (0.55-1.3)
[2022-12-15 20:31] LABS: BILIRUBIN,TOTAL 0.2 mg/dL (0.2-1); TOT PROT 5.3 g/dl (6.4-8.2)
[2022-12-15] MEDS ORDERED: ACETAMINOPHEN INJECTION 100 ML IVPB ONE (20:38)
[2022-12-15] MEDS ORDERED: ELECTROLYTE-148 SOLN 1,000 ML IV SCH (20:45)
[2022-12-15] MEDS ORDERED: ACETAMINOPHEN 1000 MG/100 ML BAG IVPB ONE (20:46)
[2022-12-15] MEDS ORDERED: MAGNESIUM SULFATE 20GM/500ML - 20 GM/500 ML INFUS.BAG IVPB SCH (21:00)
[2022-12-15] MEDS ORDERED: MAGNESIUM 4GM/H20 - 4 GM/100 ML IVPB IVPB SCH (21:00)
[2022-12-15] MEDS ORDERED: MAGNESIUM SULFATE 20GM/500ML - 20 GM/500 ML INFUS.BAG ONE (21:20)
[2022-12-15 21:44] VITALS: BMI 36.4
[2022-12-15 23:20] VITALS: BP 156/97; PULSE 82; RESP 18; TEMP 98
== END 2022-12-15 21:45 | disposition short-term general hospital (02) | DRG 833 ==
LOC: JDEL 16:10 → JLDR 20:05
PROVIDERS: ADMIT Obstetrics & Gynecology; ATTEND Obstetrics & Gynecology
DX: O14.13 Severe pre-eclampsia, third trimester (principal); O99.013 Anemia complicating pregnancy, third trimester; Z3A.31 31 weeks gestation of pregnancy; R51.9 Headache, unspecified
CPT/HCPCS: 36415; 80053; 81003; 82977; 83010; 84550; 85025; 85045; 85384; 85610; 85730; 86780; 86850; 86900; 86901; C9803-CS; U0003; U0005

== ENCOUNTER 2024-12-21 11:30 | Inpatient (IN) | payer OTHER ==
[2024-12-21] MEDS: CITRIC ACID/SODIUM CITRATE 30 ML UNIT-DOSE CUP PO ONE (12:55)
[2024-12-21] MEDS ORDERED: BETAMET ACET/BETAMET NA PH 30 MG/5 ML VIAL ONE (13:07)
[2024-12-21 13:10] LABS: EPI CELLS >36 /uL (0-25.1); HYALINE CASTS 0 /uL (0-3.1); PH,URINE 6.5 (5.0-8.0); URINE APPEARANCE CLEAR; URINE BACTERIA 919 /uL (0-1359); URINE BILIRUBIN NEGATIVE (NEGATIVE); URINE COLOR YELLOW; URINE GLUCOSE (UA) NEGATIVE (NEGATIVE); URINE KETONE NEGATIVE (NEGATIVE); URINE LEUK ESTERASE 1+ (NEGATIVE); URINE NITRITE NEGATIVE (NEGATIVE); URINE PROTEIN TRACE (NEGATIVE); URINE RBC 6 /uL (0-23.9); URINE UROBILINOGEN 0.2 mg/dL (0.2-1.0); URINE WBC 41 /uL (0-25.8)
[2024-12-21] MEDS: BETAMET ACET/BETAMET NA PH 30 MG/5 ML VIAL IM ONE (13:10)
[2024-12-21 14:20] LABS: BASO % 0.1 % (0-2.0); EOS % 0.4 % (0-4.5); HEMATOCRIT 35.4 % (32.4-45.2); HEMOGLOBIN 11.2 GM/dL (10.7-15.3); LYMPH % 21.3 % (8-40); MCH 26.5 pg (25.7-33.7); MCHC 31.5 g/dl (32.0-36.0); MEAN CELL VOLUME 84.1 fl (80-96); MEAN PLT VOLUME 10.2 fl (7.5-11.1); MONO % 5.2 % (3.8-10.2); PLATELET COUNT 172 10^3/uL (134-434); RBC 4.21 M/mm3 (3.60-5.2); RDW 13.6 % (11.6-15.6); WHITE BLOOD COUNT 8.1 K/mm3 (4.0-10.0)
[2024-12-21 14:27] LABS: INR 1.03 (0.83-1.09); PROTHROMBIN TIME (PATIENT) 11.3 SEC (9.7-13.0)
[2024-12-21 14:30] LABS: ACTIVATED PTT 28.2 SECONDS (25.2-36.5)
[2024-12-21 14:52] LABS: POTASSIUM 3.9 mmol/L (3.5-5.1)
[2024-12-21 14:54] LABS: ALBUMIN 2.4 g/dl (3.4-5.0); BLOOD UREA NITROGEN 4.8 mg/dL (7-18)
[2024-12-21 14:58] LABS: CREATININE 0.6 mg/dL (0.55-1.3)
[2024-12-21 14:59] LABS: BILIRUBIN,TOTAL 0.3 mg/dL (0.2-1)
[2024-12-21] MEDS ORDERED: ACETAMINOPHEN INJECTION 100 ML ONE ×2 (15:22→23:35)
[2024-12-21] MEDS: DEXTROSE 5%-LACTATED RINGERS 1,000 ML IV SCH (15:30)
[2024-12-21] MEDS: ACETAMINOPHEN 1000 MG/100 ML BAG IVPB ONE ×2 (15:38→23:30)
[2024-12-21 17:43] VITALS: BMI 27.1
[2024-12-22 00:16] LABS: BASO % 0.1 % (0-2.0); HEMOGLOBIN 10.7 GM/dL (10.7-15.3); LYMPH % 12.9 % (8-40); MCH 26.3 pg (25.7-33.7); MCHC 31.4 g/dl (32.0-36.0); MEAN CELL VOLUME 83.7 fl (80-96); MONO % 1.9 % (3.8-10.2); NEUT % 85.1 % (42.8-82.8); PLATELET COUNT 161 10^3/uL (134-434); RBC 4.06 M/mm3 (3.60-5.2); RDW 13.7 % (11.6-15.6); WHITE BLOOD COUNT 7.8 K/mm3 (4.0-10.0)
[2024-12-22 00:30] LABS: POTASSIUM 3.9 mmol/L (3.5-5.1)
[2024-12-22 00:31] LABS: BLOOD UREA NITROGEN 6.4 mg/dL (7-18)
[2024-12-22 00:32] LABS: ALBUMIN 2.4 g/dl (3.4-5.0)
[2024-12-22 00:34] LABS: AMYLASE 141 U/L (25-115)
[2024-12-22 00:35] LABS: CREATININE 0.7 mg/dL (0.55-1.3)
[2024-12-22 00:37] LABS: BILIRUBIN,TOTAL 0.3 mg/dL (0.2-1); TOT PROT 5.9 g/dl (6.4-8.2)
[2024-12-22] MEDS: ACETAMINOPHEN 1000 MG/100 ML BAG IVPB ONE (05:35)
[2024-12-22] MEDS ORDERED: ACETAMINOPHEN INJECTION 100 ML ONE ×2 (05:43→17:28)
[2024-12-22] MEDS: BETAMET ACET/BETAMET NA PH 30 MG/5 ML VIAL IM ONE (13:05)
[2024-12-22 14:03] LABS: BASO % 0.1 % (0-2.0); HEMATOCRIT 32.3 % (32.4-45.2); HEMOGLOBIN 10.3 GM/dL (10.7-15.3); LYMPH % 12.9 % (8-40); MCH 26.5 pg (25.7-33.7); MCHC 31.8 g/dl (32.0-36.0); MEAN CELL VOLUME 83.5 fl (80-96); MEAN PLT VOLUME 9.7 fl (7.5-11.1); MONO % 6.6 % (3.8-10.2); NEUT % 80.4 % (42.8-82.8); PLATELET COUNT 145 10^3/uL (134-434); RBC 3.87 M/mm3 (3.60-5.2); RDW 13.8 % (11.6-15.6); WHITE BLOOD COUNT 9.6 K/mm3 (4.0-10.0)
[2024-12-22 14:33] LABS: POTASSIUM 3.9 mmol/L (3.5-5.1)
[2024-12-22 14:37] LABS: ALBUMIN 2.3 g/dl (3.4-5.0)
[2024-12-22 14:38] LABS: BLOOD UREA NITROGEN 4.8 mg/dL (7-18)
[2024-12-22 14:41] LABS: CREATININE 0.9 mg/dL (0.55-1.3)
[2024-12-22 14:42] LABS: BILIRUBIN,TOTAL 0.4 mg/dL (0.2-1); TOT PROT 5.6 g/dl (6.4-8.2)
[2024-12-22] MEDS ORDERED: METOCLOPRAMIDE HCL INJECTION 10 MG/2 ML VIAL ONE (15:43)
[2024-12-22] MEDS: METOCLOPRAMIDE HCL INJECTION 10 MG/2 ML VIAL IVPB ONE (16:00)
[2024-12-22] MEDS ORDERED: ACETAMINOPHEN 1000 MG/100 ML BAG IVPB ONE (16:15)
[2024-12-22] MEDS: ACETAMINOPHEN 1000 MG/100 ML BAG IVPB PRN (17:30)
[2024-12-22 18:19] LABS: CREATININE 0.9 mg/dL (0.55-1.3)
[2024-12-22] MEDS: FAMOTIDINE 20 MG/50 ML IVPB 20 MG/50 ML MG IVPB SCH (21:56)
[2024-12-22] MEDS: METOCLOPRAMIDE HCL INJECTION 10 MG/2 ML VIAL IVPB PRN (23:52)
[2024-12-23] MEDS: ACETAMINOPHEN 1000 MG/100 ML BAG IVPB PRN (06:02)
[2024-12-23 08:18] LABS: BASO % 0.1 % (0-2.0); HEMOGLOBIN 9.6 GM/dL (10.7-15.3); LYMPH % 12.4 % (8-40); MCH 27.8 pg (25.7-33.7); MCHC 33.1 g/dl (32.0-36.0); MEAN CELL VOLUME 83.9 fl (80-96); MEAN PLT VOLUME 10.9 fl (7.5-11.1); MONO % 5.1 % (3.8-10.2); NEUT % 82.4 % (42.8-82.8); PLATELET COUNT 142 10^3/uL (134-434); RBC 3.46 M/mm3 (3.60-5.2); RDW 13.7 % (11.6-15.6); WHITE BLOOD COUNT 10.3 K/mm3 (4.0-10.0)
[2024-12-23 08:22] LABS: POTASSIUM 4.2 mmol/L (3.5-5.1)
[2024-12-23 08:26] LABS: ALBUMIN 2.2 g/dl (3.4-5.0); CALCIUM 8.3 mg/dL (8.5-10.1)
[2024-12-23 08:28] LABS: CREATININE 0.7 mg/dL (0.55-1.3)
[2024-12-23 08:31] LABS: BILIRUBIN,TOTAL 0.3 mg/dL (0.2-1); TOT PROT 5.3 g/dl (6.4-8.2)
[2024-12-24 08:02] LABS: BASO % 0.2 % (0-2.0); EOS % 0.2 % (0-4.5); HEMATOCRIT 28.4 % (32.4-45.2); HEMOGLOBIN 9.2 GM/dL (10.7-15.3); LYMPH % 18.3 % (8-40); MCH 27.1 pg (25.7-33.7); MCHC 32.3 g/dl (32.0-36.0); MEAN PLT VOLUME 9.9 fl (7.5-11.1); MONO % 6.9 % (3.8-10.2); NEUT % 74.4 % (42.8-82.8); PLATELET COUNT 141 10^3/uL (134-434); RBC 3.39 M/mm3 (3.60-5.2); RDW 13.9 % (11.6-15.6); WHITE BLOOD COUNT 10.5 K/mm3 (4.0-10.0)
[2024-12-24 08:32] LABS: POTASSIUM 3.8 mmol/L (3.5-5.1)
[2024-12-24 08:50] LABS: CALCIUM 8.4 mg/dL (8.5-10.1)
[2024-12-24 08:51] LABS: ALBUMIN 2.1 g/dl (3.4-5.0); BLOOD UREA NITROGEN 6.6 mg/dL (7-18)
[2024-12-24 08:55] LABS: BILIRUBIN,TOTAL 0.3 mg/dL (0.2-1); CREATININE 0.6 mg/dL (0.55-1.3)
[2024-12-24 08:56] LABS: TOT PROT 5.2 g/dl (6.4-8.2)
[2024-12-24] MEDS: ELECTROLYTE-148 SOLN 1,000 ML IV SCH (19:50)
[2024-12-24] MEDS ORDERED: LIGASURE IMPACT TP ONE (20:04)
[2024-12-24] MEDS: CITRIC ACID/SODIUM CITRATE 30 ML UNIT-DOSE CUP PO ONE (20:34)
[2024-12-24] MEDS ORDERED: FAMOTIDINE 20 MG/50 ML IVPB 20 MG/50 ML MG IVPB ONE (20:47)
[2024-12-24] MEDS ORDERED: morphine SULFATE/PF 1 MG/2 ML (2cc Syringe - QUVA) ONE (20:49)
[2024-12-24] MEDS ORDERED: MIDAZOLAM HCL 2 MG/2 ML SINGLE DOSE VIAL ONE ×3 (21:30→22:20)
[2024-12-24] MEDS ORDERED: KETAMINE HCL 200 MG/20 ML VIAL ONE (22:15)
[2024-12-24] MEDS ORDERED: FENTANYL CITRATE/PF 50 MCG/ML VIAL ONE (22:16)
[2024-12-24 22:50] LABS: CORD BASE EXCESS -1.4 mmol/L (0-2); CORD HCO3 24.7 mmHg (20-29); CORD pH 7.347 (7.14-7.44)
[2024-12-24 22:51] LABS: CORD BASE EXCESS -3.3 mmol/L (0-2); CORD HCO3 22.4 mmHg (20-29); CORD PCO2 42.5 mmHg (30-78); CORD pH 7.339 (7.14-7.44)
[2024-12-24] MEDS ORDERED: BENZOCAINE 20% 57 GM BOTTLE TP PRN (22:53)
[2024-12-24] MEDS ORDERED: WITCH HAZEL 50% (TUCKS) 40 PAD/JAR PAD TP PRN (22:53)
[2024-12-24] MEDS ORDERED: BENZOCAINE 28 GM HEMORRHOIDAL OINTMENT TP PRN (22:53)
[2024-12-24] MEDS ORDERED: METHYLERGONOVINE MALEATE 0.2 MG/1 ML AMP IM PRN (22:53)
[2024-12-24] MEDS ORDERED: ONDANSETRON 4 MG/2 ML VIAL IVPUSH PRN (23:45)
[2024-12-25] MEDS ORDERED: OXYTOCIN 20 UNITS in 0.9% NS 20 UNIT/1,000 ML INFUS.BAG IV ONE (00:23)
[2024-12-25] MEDS ORDERED: ACETAMINOPHEN INJECTION 100 ML ONE (00:23)
[2024-12-25] MEDS: OXYTOCIN 20 UNITS in 0.9% NS 20 UNIT/1,000 ML INFUS.BAG IV SCH (00:25)
[2024-12-25] MEDS: ACETAMINOPHEN 1000 MG/100 ML BAG IVPB ONE (00:27)
[2024-12-25 01:38] LABS: HEMATOCRIT 35.8 % (32.4-45.2); HEMOGLOBIN 11.4 GM/dL (10.7-15.3); MCH 26.6 pg (25.7-33.7); MCHC 31.8 g/dl (32.0-36.0); MEAN CELL VOLUME 83.7 fl (80-96); MEAN PLT VOLUME 10.2 fl (7.5-11.1); PLATELET COUNT 156 10^3/uL (134-434); RBC 4.28 M/mm3 (3.60-5.2); RDW 13.9 % (11.6-15.6); WHITE BLOOD COUNT 13.7 K/mm3 (4.0-10.0)
[2024-12-25] MEDS: morphine SULFATE/PF 1 MG/2 ML (2cc Syringe - QUVA) EP ONE (02:07)
[2024-12-25] MEDS: IBUPROFEN 800 MG/8 ML IJ IVPB PRN (02:12)
[2024-12-25] MEDS ORDERED: ceFAZolin SODIUM 1 GM VIAL ONE (02:37)
[2024-12-25] MEDS: CEFAZOLIN 1 GM/D5W 1 GM/50 ML BAG IVPB SCH (03:17)
[2024-12-25 07:35] LABS: BASO % 0.1 % (0-2.0); EOS % 0.2 % (0-4.5); HEMATOCRIT 34.4 % (32.4-45.2); LYMPH % 16.4 % (8-40); MCH 26.7 pg (25.7-33.7); MCHC 31.9 g/dl (32.0-36.0); MEAN CELL VOLUME 83.8 fl (80-96); MEAN PLT VOLUME 10.4 fl (7.5-11.1); MONO % 6.6 % (3.8-10.2); NEUT % 76.7 % (42.8-82.8); PLATELET COUNT 145 10^3/uL (134-434); RDW 13.7 % (11.6-15.6); WHITE BLOOD COUNT 11.1 K/mm3 (4.0-10.0)
[2024-12-25] MEDS: oxyCODONE HCL 5 MG TABLET PO PRN ×2 (10:46→23:53)
[2024-12-25] MEDS: PRENATAL VITAMINS W/ FOLIC ACID TABLET (FP) PO SCH (10:48)
[2024-12-25] MEDS: ENOXAPARIN NA (PORCINE) 40 MG/0.4 ML DISP.SYRIN SQ SCH (10:49)
[2024-12-25] MEDS: ACETAMINOPHEN 325 MG TABLET (FP) PO PRN (12:56)
[2024-12-25 13:38] VITALS: RESP 18
[2024-12-25] MEDS: SIMETHICONE 80 MG TAB.CHEW (FP) PO PRN (20:17)
[2024-12-25] MEDS ORDERED: BISACODYL 10 MG SUPP.RECT RC PRN (22:53)
[2024-12-25] MEDS: SENNOSIDES/DOCUSATE COMBO (SENNA PLUS) TABLET (UD) PO PRN (23:52)
[2024-12-26] MEDS: IBUPROFEN 600 MG TABLET (FP) PO PRN (09:40)
[2024-12-26] MEDS: ACETAMINOPHEN 500 MG TABLET (FP) PO SCH (13:07)
[2024-12-26] MEDS: IBUPROFEN 600 MG TABLET (FP) PO SCH (17:04)
[2024-12-27 06:22] LABS: BASO % 0.2 % (0-2.0); EOS % 1.1 % (0-4.5); HEMATOCRIT 35.2 % (32.4-45.2); HEMOGLOBIN 11.1 GM/dL (10.7-15.3); LYMPH % 29.9 % (8-40); MCH 26.5 pg (25.7-33.7); MCHC 31.7 g/dl (32.0-36.0); MEAN CELL VOLUME 83.6 fl (80-96); MEAN PLT VOLUME 9.3 fl (7.5-11.1); MONO % 6.3 % (3.8-10.2); NEUT % 62.5 % (42.8-82.8); PLATELET COUNT 170 10^3/uL (134-434); RBC 4.21 M/mm3 (3.60-5.2); RDW 14.1 % (11.6-15.6)
[2024-12-28 10:20] VITALS: BP 125/88; PULSE 95
[2024-12-28 10:25] VITALS: TEMP 97.9
== END 2024-12-28 13:40 | disposition home or self-care (01) | DRG 784 ==
LOC: JDEL 11:30 → JLDR 16:18 → J3W 12-22 21:30 → JLDR 12-24 19:37 → J3W 12-25 01:33
PROVIDERS: ADMIT Obstetrics & Gynecology; ATTEND Obstetrics & Gynecology
PROC: 10D00Z1 Extraction of Products of Conception, Low, Open Approach (ICD-10-PCS; principal; 2024-12-24)
PROC: 0UT70ZZ Resection of Bilateral Fallopian Tubes, Open Approach (ICD-10-PCS; 2024-12-24)
DX: O34.211 Maternal care for low transverse scar from previous cesarean delivery (principal); O41.03X0 Oligohydramnios, third trimester, not applicable or unspecified; O14.94 Unspecified pre-eclampsia, complicating childbirth; Z3A.33 33 weeks gestation of pregnancy; Z37.0 Single live birth; O75.89 Other specified complications of labor and delivery; G44.209 Tension-type headache, unspecified, not intractable; Z30.2 Encounter for sterilization
CPT/HCPCS: 36415; 36430; 36600; 59025; 59409; 70450-TC; 70551-TC; 80053; 81003; 82150; 82570; 82575; 82803; 83690; 84156; 84550; 85025; 85027; 85610; 85730; 86780; 86850; 86900; 86901; 86922; 88305-TC; 88307-TC; 94010; 96372; J0131; P9058